=== PATIENT | female | born 1995 | race African-American/Black ===

== ENCOUNTER 2017-06-02 21:54 | Observation (INO) | payer MEDICAID ==
[~2017-06-02] VITALS: Ht 157.5 cm; Wt 59.9 kg
[2017-06-02 23:29] LABS: CLARITY URINE CLEAR (CLEAR); COLOR URINE YELLOW (YELLOW); GLUCOSE URINE NEGATIVE (NEGATIVE); KETONES URINE NEGATIVE (NEGATIVE); LEUKOCYTE ESTERASE URINE NEGATIVE (NEGATIVE); NITRITE URINE NEGATIVE (NEGATIVE); OCCULT BLOOD URINE NEGATIVE (NEGATIVE); PROTEIN URINE NEGATIVE (NEGATIVE); SPECIFIC GRAVITY URINE 1.004 (1.005-1.030); UROBILINOGEN URINE 0.2 E.U./dL (0.2-1.0)
[2017-06-02] MEDS ORDERED: TERBUTALINE SULFATE 1MG/ML VIAL SUBCUT PRN (23:45)
[2017-06-02] MEDS ORDERED: LACTATED RINGERS 1,000 ML IV NR (23:45)
[2017-06-03] MEDS ORDERED: PNV1TABL76 MT (03:24)
[2017-06-03] MEDS ORDERED: FERR325T6 PO (03:24)
== END 2017-06-03 00:05 | disposition left against medical advice (07) ==
LOC: L&D 21:54
PROVIDERS: ADMIT Specialist; ATTEND Specialist
DX: O21.2 Late vomiting of pregnancy (principal); O26.893 Other specified pregnancy related conditions, third trimester; R35.0 Frequency of micturition; Z3A.33 33 weeks gestation of pregnancy
CPT/HCPCS: 81003; 99281; G0378; J7120; J3105